=== PATIENT | male | born 1975 | race American Indian/Alaskan Native ===

== ENCOUNTER 2018-03-21 23:39 | Emergency (ER) | payer MEDICAID ==
[2018-03-21 23:56] VITALS: BP 103/64; PULSE 70; RESP 14; TEMP 98.3; O2SAT 96
[2018-03-22] MEDS ORDERED: Permethrin 5% Cream(60 gm) TOP STA (01:14)
--- NOTE | 2018-03-22 02:21 | C.PDOC ---
History Of Present Illness 42 y/o male presents to the ED for evaluation of generalized itching all over his body x 2 days. Patient states he is homeless and recently moved into homeless longterm 3 days ago. He denies fever, chills. Time Seen by Provider: 03/21/18 23:57 Chief Complaint (Nursing): Abnormal Skin Integrity History Per: Patient History/Exam Limitations: no limitations Onset/Duration Of Symptoms: Days (2) Current Symptoms Are (Timing): Still Present Quality Of Symptoms: Itching Additional History Per: Patient Past Medical History Reviewed: Historical Data, Nursing Documentation, Vital Signs Vital Signs: Last Vital Signs Temp 98.3 F 03/21/18 23:53 Pulse 70 03/21/18 23:53 Resp 14 03/21/18 23:53 BP 103/64 03/21/18 23:53 Pulse Ox 96 03/22/18 06:27 - Medical History PMH: No Chronic Diseases Surgical History: No Surg Hx Family History: States: Unknown Family Hx - Social History Hx Alcohol Use: No Hx Substance Use: No - Immunization History Hx Tetanus Toxoid Vaccination: No Hx Influenza Vaccination: No Hx Pneumococcal Vaccination: No Review Of Systems Constitutional: Negative for: Fever, Chills Skin: Positive for: Other (generalized itching all over body ) Physical Exam - Physical Exam Appears: Non-toxic, No Acute Distress Skin: Normal Color, Warm, Dry, No Rash Head: Atraumatic, Normacephalic Eye(s): bilateral: Normal Inspection Oral Mucosa: Moist Neck: Supple Chest: Symmetrical, No Deformity, No Tenderness Cardiovascular: Rhythm Regular, No Murmur Respiratory: Normal Breath Sounds, No Rales, No Rhonchi, No Wheezing Extremity: Normal ROM, Capillary Refill (less than 2 seconds ) Neurological/Psych: Oriented x3, Normal Speech, Normal Cognition Gait: Steady ED Course And Treatment O2 Sat by Pulse Oximetry: 96 (on RA ) Pulse Ox Interpretation: Normal Medical Decision Making Medical Decision Making: Progress: Patient treated for scabies, as he lives in a homeless longterm. Permethrin 5% cream applied. Disposition - Disposition Referrals: [facility] [Outside] Disposition: HOME/ ROUTINE Disposition Time: 02:19 Condition: GOOD Additional Instructions: Patient was treated for possible scabies. No bugs seen on the patient. 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 - Scribe Statement The provider has reviewed the documentation as recorded by the Scribe (Claudia Gaffney) All medical record entries made by the Scribe were at my direction and personally dictated by me. I have reviewed the chart and agree that the record accurately reflects my personal performance of the history, physical exam, medical decision making, and the department course for this patient. I have also personally directed, reviewed, and agree with the discharge instructions and disposition.
== END 2018-03-22 02:26 | disposition home or self-care (01) ==
LOC: C.ER 23:39
DX: B86 Scabies (principal)

== ENCOUNTER 2018-10-10 07:22 | Emergency (ER) | payer MEDICAID, OTHER ==
[2018-10-10 07:38] VITALS: BMI 25.8
[2018-10-10 07:50] VITALS: RESP 18
[2018-10-10] MEDS ORDERED: Alum-Mag Hydrox-Simethicone Susp (30 mL) PO ONE (08:03)
[2018-10-10] MEDS ORDERED: Alum-Mag Hydrox-Simethicone Susp (30 mL) ONE (08:19)
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
[2018-10-10 08:39] LABS: EOS # 0.3 K/uL (0.0-0.7); EOS % 7.1 % (0.0-4.0); HEMOGLOBIN 15.9 g/dL (12.0-18.0); LYMPH # 1.2 K/uL (1.0-4.3); LYMPH % 25.5 % (20.0-40.0); MEAN CELL VOLUME 95.8 fL (80.0-94.0); MEAN CORPUSCULAR HEMOGLOBIN 32.6 pg (27.0-31.0); MEAN CORPUSCULAR HGB CONC 34.1 g/dL (33.0-37.0); MEAN PLATELET VOLUME 8.5 fL (7.2-11.7); MONO # 0.4 K/uL (0.0-0.8); MONO % 8.9 % (0.0-10.0); NEUT # 2.6 K/uL (1.8-7.0); NEUT % 57.5 % (50.0-75.0); NRBC % 0.1 % (0.0-2.0); RBC 4.88 Mil/uL (4.40-5.90); RED CELL DISTRIBUTION WIDTH 13.2 % (11.5-14.5); WHITE BLOOD COUNT 4.5 K/uL (4.8-10.8)
[2018-10-10 08:51] LABS: BLOOD UREA NITROGEN 15 mg/dL (9-20); CALCIUM 9.9 mg/dl (8.6-10.4); GFR NON-AFRICAN AMERICAN 60; LIPASE 29 U/L (23-300)
[2018-10-10 11:02] VITALS: BP 115/74; PULSE 58; TEMP 98.5
[2018-10-10 18:41] VITALS: O2SAT 95
== END 2018-10-10 11:00 | disposition home or self-care (01) ==
LOC: C.ER 07:22
DX: R10.9 Unspecified abdominal pain (principal); K21.9 Gastro-esophageal reflux disease without esophagitis